=== PATIENT | male | born 1965 | race Caucasian/White ===

== ENCOUNTER 2018-05-22 10:01 | Outpatient (CLI) | payer OTHER ==
[~2018-05-22 10:01] MED LIST: AMOX1TAB12 PO; LEVAQUIN750 MG PO; NORTUSS-D.E. S118 ML PO; PERCOCET 5/3251 TAB PO
== END 2018-05-22 10:11 | disposition home or self-care (01) ==
LOC: NUCLEAR 10:01
DX: R00.2 Palpitations (principal); I52 Other heart disorders in diseases classified elsewhere

== ENCOUNTER 2022-09-27 14:39 | Emergency (ER) | payer OTHER ==
[~2022-09-27] VITALS: Ht 185.4 cm; Wt 77.1 kg
[2022-09-27] MEDS ORDERED: SYNTHROID75 MCG PO (15:44)
== END 2022-09-27 19:51 | disposition home or self-care (01) ==
LOC: ER 14:39
DX: S22.41XA Multiple fractures of ribs, right side, initial encounter for closed fracture (principal); W09.8XXA Fall on or from other playground equipment, initial encounter; Y93.42 Activity, yoga; Y92.89 Other specified places as the place of occurrence of the external cause

== ENCOUNTER 2025-04-28 20:37 | Emergency (ER) | payer OTHER ==
[~2025-04-28] VITALS: Ht 185.4 cm; Wt 74.8 kg
[~2025-04-28 20:37] MED LIST changes: +SYNTHROID75 MCG PO
[2025-04-28] MEDS ORDERED: RIFAMPIN300 MG PO (20:56)
[2025-04-28 23:22] LABS: BASO % 0.8 % (0.1-1.2); EOS # 0.15 (0.04-0.54); EOS % 1.9 % (0.7-7.0); LYMPH # 1.75 (1.18-3.74); LYMPH % 22.0 % (19.3-53.1); MEAN PLATELET VOLUME 10.30 fl (9.4-12.4); MONO # 0.49 (0.24-0.82); MONO % 6.2 % (4.7-12.5); NEUT # 5.49 (1.56-6.13); NEUT % 68.8 % (34.0-71.1); RED CELL DISTRIBUTION WIDTH 12.4 % (11.6-14.4)
[2025-04-28 23:29] LABS: INR 1.0
[2025-04-28 23:33] LABS: D DIMER < 0.19 MG/L
[2025-04-28 23:36] LABS: ALT/SGPT 40.0 U/L (12-78); AST/SGOT 25.0 U/L (15-37); BILIRUBIN TOTAL 0.47 mg/dL (0.3-1.2); BUN CREA RATIO 28.0 (7.0-25.0); CREATININE SERUM 1.04 mg/dL (0.70-1.30); GFR 73.35; GLOBULINA 3.5 G/DL (2.4-3.5); GLUCOSE FASTING 105.0 mg/dL (65-100); OSMOLALITY SERUM 289.0 MOSM/KG (275-295)
[2025-04-29] MEDS ORDERED: DEXAMETHASONE SODIUM PHOSPHATE 4 MG/ML VIAL ONE (00:59)
[2025-04-29] MEDS ORDERED: KETOROLAC TROMETHAMINE 30 MG VIAL ONE (00:59)
[2025-04-29] MEDS ORDERED: DEXAMETHASONE SODIUM PHOSPHATE 4 MG/ML VIAL IM ONE (01:00)
[2025-04-29] MEDS ORDERED: KETOROLAC TROMETHAMINE 60 MG VIAL IM ONE (01:00)
[2025-04-29] MEDS ORDERED: IBUPROFEN600 MG PO (01:04)
== END 2025-04-29 01:57 | disposition home or self-care (01) ==
LOC: ER 20:38
PROVIDERS: Preventive Medicine Public Health & General Preventive Medicine
DX: M79.672 Pain in left foot (principal); E03.9 Hypothyroidism, unspecified
CPT/HCPCS: 36415; 96372; 99282; J1100; J1885